=== PATIENT | female | born 1950 | race Hispanic/Latino ===

== ENCOUNTER 2018-10-21 20:56 | Emergency (ER) | payer MEDICARE ==
[~2018-10-21] VITALS: Ht 162.6 cm; Wt 76.2 kg
[2018-10-21] MEDS ORDERED: SODIUM CHLORIDE 0.9% 1000ML 1,000 ML IV STA (21:34)
[2018-10-21] MEDS ORDERED: HYDROMORPHONE 2MG/ML 2 MG/ML ML IV ONE (21:45)
[2018-10-21] MEDS ORDERED: PROMETHAZINE 12.5MG/ NACL 0.9% 12.5 MG/50 ML BAG IV ONE (21:45)
[2018-10-21] MEDS ORDERED: FAMOTIDINE 20 MG/2 ML VIAL IV ONE (21:45)
[2018-10-21 22:12] LABS: BASOPHILS % 0.2 % (0.0-1.0); EOSINOPHILS % 0.2 % (0.0-6.0); HEMATOCRIT 36.4 % (34.2-44.1); HEMOGLOBIN 12.1 g/dL (12.0-16.0); LYMPHOCYTES # (AUTO) 1.1 (1.0-3.2); LYMPHOCYTES % 19.1 % (18.0-39.1); MEAN CORPUSCULAR HEMOGLOBIN 29.2 pg (28-32); MEAN CORPUSCULAR HGB CONC 33.2 g/dL (31-35); MEAN CORPUSCULAR VOLUME 87.7 fL (81-99); MONOCYTES # (AUTO) 0.4 (0.2-0.8); MONOCYTES % 7.3 % (4.4-11.3); NEUTROPHILS # (AUTO) 4.1 (2.1-6.9); NEUTROPHILS % 72.8 % (38.7-80.0); PLATELET COUNT 175 x10e3/uL (140-360); RED BLOOD COUNT 4.15 x10e6/uL (3.6-5.1); RED CELL DISTRIBUTION WIDTH 13.3 % (11.7-14.4)
[2018-10-21 22:24] LABS: ALANINE AMINOTRANSFERASE 235 IU/L (0-55); ALBUMIN 3.8 g/dL (3.5-5.0); ALBUMIN/GLOBULIN RATIO 0.9 (0.8-2.0); ALKALINE PHOSPHATASE 234 IU/L (40-150); AMYLASE 42 U/L (25-125); ANION GAP 16.3 mmol/L (8-16); BLOOD UREA NITROGEN 9 mg/dL (7-26); BUN/CREATININE RATIO 13 (6-25); CALCIUM 9.5 mg/dL (8.4-10.2); CARBON DIOXIDE 24 mmol/L (22-29); CHLORIDE 101 mmol/L (98-107); CREATININE, SERUM 0.67 mg/dL (0.57-1.11); EST GLOMERULAR FILTRATION RATE > 60 ML/MIN (60-); GLUCOSE 114 mg/dL (74-118); LIPASE 23 U/L (8-78); POTASSIUM 3.3 mmol/L (3.5-5.1); SODIUM 138 mmol/L (136-145)
[2018-10-21] MEDS ORDERED: IOPAMIDOL 370 MG/ML 200 ML INFUS..BTL INJ ONE (23:07)
[2018-10-21] MEDS ORDERED: SODIUM CHLORIDE 0.9% 50ML 50 ML ONE (23:07)
[2018-10-21 23:14] LABS: BILIRUBIN,URINE MODERATE (NEGATIVE); CLARITY,URINE CLOUDY (CLEAR); COLOR,URINE YELLOW (YELLOW); KETONES,URINE TRACE (NEGATIVE); LEUKOCYTE ESTERASE ,URINE MODERATE (NEGATIVE); NITRITE,URINE NEGATIVE (NEGATIVE); PROTEIN,URINE DIPSTICK TRACE (NEGATIVE); URINE UROBILINOGEN 4 mg/dL (0.2 - 1)
[2018-10-21 23:28] LABS: WBC,URINE (MAN) >50 /HPF (0-5)
[2018-10-21 23:29] LABS: BACTERIA,URINE MANY /HPF; EPITHELIAL CELLS,URINE FEW /LPF; MUCUS,URINE MODERATE (RARE); TRANSITIONAL EPI CELLS,URINE FEW
[2018-10-21] MEDS ORDERED: CEFTRIAXONE SOD 1 GM VIAL IV ONE (23:30)
--- NOTE | 2018-10-21 23:50 | Diagnostic Imaging Report ---
EXAM: CT Abdomen and Pelvis WITH contrast INDICATION: Epigastric pain COMPARISON: None. TECHNIQUE: Abdomen and pelvis were scanned utilizing a multidetector helical scanner from the lung base to the pubic symphysis after administration of IV contrast. Coronal and sagittal reformations were obtained. Routine protocol was performed. Scan was performed when during portal venous phase. IV CONTRAST: 100 mL of Isovue 370 ORAL CONTRAST: None COMPLICATIONS: None RADIATION DOSE: Total DLP: 494 mGy*cm Estimated effective dose: (DLP x 0.015 x size factor) mSv CTDIvol has been reviewed. It is below the limits set by the Radiation Protocol Committee (RPC). Dose modulation, iterative reconstruction, and/or weight based adjustment of the mA/kV was utilized to reduce the radiation dose to as low as reasonably achievable. FINDINGS: LINES and TUBES: None. LOWER THORAX: Left coronary calcific atherosclerosis. HEPATOBILIARY: Hepatic surface nodularity and widening of the intrahepatic fissure. No focal hepatic lesions. No biliary ductal dilation. GALLBLADDER: A peripheral calcified gallstone in the gallbladder fundus. No pericholecystic fluid. No wall thickening. SPLEEN: No splenomegaly. PANCREAS: Pancreatic parenchymal atrophy. No ductal dilation or mass. ADRENALS: No adrenal nodules KIDNEYS/URETERS: Kidneys enhance symmetrically. No hydronephrosis. No cystic or solid mass lesions. No stones. GI TRACT: No abnormal distention, wall thickening, or evidence of bowel obstruction. There are diverticula within the colon without evidence of diverticulitis. Appendix is normal. PELVIC ORGANS/BLADDER: A 6.8 cm cystic mass with peripheral septations and nodularity in the right adnexa. Multiple small cysts and calcifications in the left ovary which is also slightly enlarged for a postmenopausal patient. LYMPH NODES: No lymphadenopathy. VESSELS: There is mild atherosclerotic disease in the aorta and major arterial branches. PERITONEUM / RETROPERITONEUM: No free air or fluid. BONES: There are degenerative changes in the lumbar spine. SOFT TISSUES: A 2.4 cm nodular soft tissue density in the left posterolateral lower thoracic subcutaneous soft tissues within associated punctate calcification. Fat-containing periumbilical hernia. IMPRESSION: 1. A 6.8 cm complex cystic mass in the right adnexa is likely ovarian in origin and may represent malignancy. Recommend gynecology referral. 2. Pancreatic atrophy without evidence of pancreatitis. 3. CT evidence of hepatic cirrhosis. No focal mass or findings of portal hypertension. 4. Coronary artery calcific atherosclerosis. 5. Cholelithiasis without acute cholecystitis. 6. Colonic diverticulosis without diverticulitis. 7. Subcutaneous nodule in the left posterolateral thoracic soft tissues. Correlate for prior trauma to this site and focal physical examination. Signed by: Sylvester Napier DO on 10/21/2018 11:46 PM
[2018-10-22 00:45] VITALS: BP 145/84
== END 2018-10-22 01:05 | disposition home or self-care (01) ==
LOC: ER 20:56
DX: R10.13 Epigastric pain (principal); R11.0 Nausea; N30.91 Cystitis, unspecified with hematuria; B17.9 Acute viral hepatitis, unspecified; K29.00 Acute gastritis without bleeding
CPT/HCPCS: 36415; 74177; 80053; 81001; 82150; 83690; 85025; 99284; J1170; J7030; Q9967

== ENCOUNTER → 2018-11-17 | Outpatient (CLI) | payer MEDICARE ==
[~2018-11-17] MED LIST: GADOBENATE DIMEGLUMINE 1 ML IV ONE; SODIUM CHLORIDE 0.9% 100 ML 100 ML ONE
[2018-11-17 11:08] LABS: BLOOD UREA NITROGEN 9 mg/dL (7-26); BUN/CREATININE RATIO 14 (6-25); CREATININE, SERUM 0.63 mg/dL (0.57-1.11); EST GLOMERULAR FILTRATION RATE > 60 ML/MIN (60-)
--- NOTE | 2018-11-17 15:59 | Diagnostic Imaging Report ---
MRI/MRCP of the abdomen, with and without contrast, 11/17/2018. History: Chronic abdominal pain. Comparison: CT abdomen and pelvis 10/21/2018. Technique: Multiplanar, multisequence imaging of the abdomen was performed pre- and post-IV administration of 15cc of MultiHance. Dynamic enhanced images of the liver were included. 3-D MRCP fat-saturated sequence was performed post contrast with MIP reformations. Discussion: There is slight nodularity of the liver surface contour without enhancing or suspicious hepatic lesion. Liver size is normal. There is apparent thickening with hyperintensity of the proximal gallbladder wall. The hepatic, portal, splenic, and mesenteric veins are patent. The portal vein is normal in size measuring 1.2 cm in diameter. There is no evidence of ascites. The biliary tree is normal in size and appearance. CBD measures 5 mm in diameter. The spleen, pancreas, kidneys, and adrenal glands are normal in appearance. The visualized loops of bowel and osseous structures are normal. There is no evidence of adenopathy. Partially visualized right adnexal cystic lesion is again noted. IMPRESSION: 1. Cirrhotic appearing liver without focal hepatic abnormality. 2. Gallbladder wall thickening and hyperintensity. Neoplasm cannot be excluded. Recommend further evaluation with right upper quadrant ultrasound. 3. Normal-appearing intra and extra hepatic bile ducts. 4. Right adnexal cystic mass. Again recommend gynecologic consult. Signed by: Tong Edwards on 11/17/2018 3:56 PM
== END ==
LOC: MRI 10:00
PROVIDERS: ATTEND Family Medicine
DX: K85.90 Acute pancreatitis without necrosis or infection, unspecified (principal)
CPT/HCPCS: 36415; 74183; 82565; 84520; A9577